=== PATIENT | female | born 1945 | race Caucasian/White ===

== ENCOUNTER 2017-05-14 11:53 | Inpatient (IN) | payer OTHER ==
[~2017-05-14] VITALS: Ht 162.6 cm; Wt 94.5 kg
--- NOTE | ~2017-05-14 | EKG ---
[place], [place] ELECTROCARDIOGRAM REPORT NAME: HEATHER BERRIOS UNIT #: [id number] ROOM: [facility] DOCTOR: JASON NARANJO,MONI BIRTHDATE: [birth year] DOS: 05/14/2017 TIME: 1334 hours IMPRESSION: 1. Sinus rhythm. 2. Sinus bradycardia. 3. Nonspecific intraventricular conduction delay. 4. Normal QT interval. MONI GOMEZ MD CM:EKGRPT:ELECTROCARDIOGRAM REPORT [id number] MONI GOMEZ MD
--- NOTE | ~2017-05-14 | CON ---
[place], [place] REPORT OF CONSULTATION NAME[id number] UNIT #: [id number] ROOM: 509 DOCTOR: STANLEY SANCHEZ MD BIRTHDATE: [birth year] DOS: 05/17/2017 HISTORY OF PRESENT ILLNESS: This is a 70-year-old patient who was presented with chief complaint of multiple issues among which was her dysphagia and epigastric distress. She has metastatic carcinoma, right flank pain, and multisite pain with a history of cirrhosis, ascites, status post chemotherapy for breast CA and renal failure; diuresis, and complex history of metastatic management. PAST MEDICAL HISTORY: Also associated with gastroesophageal reflux, chronic atrial fibrillation, hyperlipidemia, lung metastasis, breast CA, Paget's disease of the left breast, type 2 diabetes mellitus, essential hypertension, and renal insufficiency. PAST SURGICAL HISTORY: Cholecystectomy, hysterectomy, tonsillectomy, and cataracts. SOCIAL HISTORY: Nonsmoker and nonalcohol consumer. FAMILY HISTORY: Noncontributory. ALLERGIES: VICODIN, PENICILLIN, OXYCODONE, AND HYDROCODONE. MEDICATIONS: List has been reviewed. REVIEW OF SYSTEMS: HEENT: Denies double vision or blurred vision. RESPIRATORY: Denies shortness of breath. CARDIOVASCULAR: Denies chest pain. DIGESTIVE SYSTEM: At the present time, no suppression of appetite. She is able to eat and no bowel movement compromise. PHYSICAL EXAMINATION: GENERAL: Reveals a well-nourished patient, obese. HEENT: Head is normocephalic and nontraumatic. Mouth and buccal mucosa benign. NECK: Supple. No thyromegaly. No cervical lymphadenopathy. CHEST: Symmetric anatomy. Equal expansion. No wheeze. No rhonchi. HEART: Normal sinus rhythm. No gallop. No murmur. ABDOMEN: Soft. Obese. No hepato-organomegaly. Bowel sounds present. EXTREMITIES: A 1+ pedal edema was noticed. NEUROLOGIC: Alert and oriented to time, place, and person. Sensory and motor intact. Cranial nerves 2-12 is intact. LABORATORY DATA: Reviewed. Her initial H and H 9 and 28, white blood cell of 9, and platelet count of normal level was noticed. Lactic acid was 2.0. INR of 1.1. Serum ammonia 25. CT scan of the abdomen and pelvis was reviewed, no acute process. A 4 mm solid nodule in the lingula of the lung and the details as reported diminished lung average access. Pancreas, spleen, adrenal gland, and gallop kidneys are suboptimally evaluated. Calcification of coronary artery disease seen. No gross biliary dilation identified. There are a few small [place], [place] REPORT OF CONSULTATION NAME: HEATHER BERRIOS UNIT #: [id number] ROOM: 509 DOCTOR: STANLEY SANCHEZ MD BIRTHDATE: [birth year] calcification in the right lobe of the liver. Labs reviewed and records reviewed. Urine shows no bacterial overgrowth with renal status of BUN and creatinine of 50 and 2.26 was noticed and hyperkalemia of 5.4 is known. Labs reviewed and records reassessed. IMPRESSION: 1. Epigastric distress. 2. Reflux. 3. Breast cancer. 4. Lung metastasis. PLAN AND DISCUSSION: I have discussed with the patient. She does not want any interventional evaluation at the present time. She is content with the management. We are going to assure that she remains on PPI since her appetite is intact. Bowel movements are regular. We are content also she has never had colonoscopy done in her lifetime; however, that I will defer to Oncology and urgency of the need for such a screening at this stage. Renal insufficiency being addressed. Anemia being observed. Pain management in progress. Other adjunctive diagnoses as outlined. STANLEY SANCHEZ MD CM:CONSTR:REPORT OF CONSULTATION 1348 05/18/17 0102 interface
--- NOTE | ~2017-05-14 | PR ---
[place], [place] PROGRESS NOTE NAME: [id number] UNIT #: [id number] ROOM: 509 DOCTOR: CHERYL CRONIN MD BIRTHDATE: [birth year] DOS: 05/16/2017 SUBJECTIVE: The patient seen and examined. She is awake and alert. She is feeling much better. She denies nausea or vomiting. She states her urine output has been very good. She is tolerating a diet. PHYSICAL EXAMINATION: VITAL SIGNS: Temperature 98.4, pulse 69, respiratory rate 20, blood pressure 120/80. HEENT: Shows no JVD. LUNGS: Fairly clear. No crackles or rales. HEART: Normal S1, S2. No rub, thrill or gallop. ABDOMEN: Soft, nontender. There is no organomegaly or rigidity. EXTREMITIES: Had trace to 1+ edema. SKIN: Showed no overt rash. LABORATORY DATA: Blood cultures were negative to date as well as urine culture was negative to date. Hemoglobin 8.8, white count of 5.5, platelets of 196. Sodium 142, potassium 5.4, CO2 of 23, calcium 9.0, phosphorus 4.0, albumin 3.1, BUN 72, creatinine of 4.2. Renal ultrasound was noted and was negative for hydronephrosis. ASSESSMENT AND PLAN: 1. Acute kidney injury. This seems to be related to prerenal factors. Renal function is improving. Continue IV fluids for now. Can likely discontinue them tomorrow as long as she is tolerating oral intake. 2. Anemia. Follow H and H. Transfuse as felt needed. 3. Mild hyperkalemia. Follow labs. 4. History of metastatic breast cancer. Ongoing supportive care. 5. History of baseline chronic kidney disease stage 4 according to the notes. As noted, renal function is improving. She is off her enalapril, Aldactone and NSAIDs. CHERYL CRONIN MD CM:PNTRANS 06 34 CHERYL CRONIN MD 05/16/172033 interface
[~2017-05-14 11:53] MED LIST: BESIVANCE 5 ML5 ML OD; CARE; CLINDAMYCIN HC300 MG PO; DILT-CD120 MG; ELIQUIS5 M1 PO; ENALAPRIL10 MG PO; FENOFIBRIC ACID PO; GLIPIZIDE10 M2 PO; GLYBURIDE5 MG; JANTOVEN4 MG PO; LANTUS100 U/ML SC; LASIX20 MG PO; LOVASTATIN20 MG PO; MEDROL DOSEPAK4 MG PO; METFORMIN1000 MG; OMEPRAZOLE20 MG; OMEPRAZOLE40 MG PO; TRILIPIX; TRILIPIX45 M1 PO; ULTRAM50 MG PO; VISTARIL50 MG PO; WARFARIN4 MG PO; [UNRECOGNIZED DRUG - OTHER]
[2017-05-14 12:02] VITALS: BP 127/102
[2017-05-14 12:49] LABS: BASO % 0.2 % (0.0-1.0); EOS # 0.2 10*3/uL (0.0-0.4); HEMATOCRIT 28.5 % (37.0-47.0); HEMOGLOBIN 9.2 g/dl (12.0-16.0); LYMPH % 10.5 % (27.0-41.0); MEAN CELL VOLUME 96.3 fl (81.0-99.0); MEAN CORPUSCULAR HGB 31.1 pg (27.0-31.0); MEAN CORPUSCULAR HGB CONC 32.3 g/dl (33.0-37.0); MEAN PLATELET VOLUME 9.1 fl (9.6-12.3); MONO # 0.5 10*3/uL (0.1-1.0); MONO % 5.8 % (3.0-9.0); NEUT # 7.3 10*3/uL (2.3-7.9); NEUT % 80.8 % (47.0-73.0); PLATELET COUNT AUTOMATED 206 10*3/uL (130-400); RED BLOOD COUNT 2.96 10*6/uL (4.10-5.10); RED CELL DISTRI WIDTH 12.9 % (0-14.5)
[2017-05-14 13:00] LABS: ACT PARTIAL THROMBO TIME 27.7 SECONDS (20.8-31.5); INTERNATIONAL NORM RATIO 1.1 (2.0-3.5)
[2017-05-14 13:03] LABS: ALBUMIN 3.4 gm/dl (3.1-4.5); CREATININE 8.23 mg/dL (0.55-1.02); POTASSIUM 5.5 mmol/L (3.5-5.1)
[2017-05-14 13:15] VITALS: BP 120/92
[2017-05-14 15:30] VITALS: BP 109/48
[2017-05-14] MEDS ORDERED: ALDACTONE25 M1 PO (17:41)
[2017-05-14] MEDS ORDERED: ENALAPRIL10 MG PO (17:42)
[2017-05-14] MEDS ORDERED: LEXAPRO10 MG PO (17:44)
[2017-05-14] MEDS ORDERED: LASIX40 MG PO (17:44)
[2017-05-14] MEDS ORDERED: Magnesium Oxid400 MG PO (17:45)
[2017-05-14] MEDS ORDERED: ZOFRAN4 MG PO (18:58)
[2017-05-14] MEDS ORDERED: SYMB160 INH (19:00)
[2017-05-14] MEDS ORDERED: NITROSTAT0.4 MG SL (19:00)
[2017-05-14 20:00] VITALS: BP 122/54
[2017-05-14 23:14] LABS: BILIRUBIN NEGATIVE (NEGATIVE); BLOOD TRACE-INTACT (NEGATIVE); CLARITY CLEAR (CLEAR); COLOR YELLOW (YELLOW); GLUCOSE 2+ (NEGATIVE); KETONE NEGATIVE (NEGATIVE); LEUKO ESTERASE NEGATIVE (NEGATIVE); NITRITE NEGATIVE (NEGATIVE); SPECIFIC GRAVITY <= 1.005 (1.005-1.030); UROBILINOGEN 0.2 E.U./dl (0.2-1.0)
[2017-05-14 23:22] LABS: BACTERIA 1+
[2017-05-14 23:24] LABS: URINE CREATININE RANDOM 60.1 mg/dL
[2017-05-15] VITALS: BP 120/62
[2017-05-15 06:47] LABS: BASO % 0.2 % (0.0-1.0); EOS # 0.2 10*3/uL (0.0-0.4); EOS % 2.7 % (1.0-4.0); HEMATOCRIT 25.6 % (37.0-47.0); HEMOGLOBIN 8.5 g/dl (12.0-16.0); LYMPH # 1.2 10*3/uL (1.3-4.4); LYMPH % 18.6 % (27.0-41.0); MEAN CELL VOLUME 95.9 fl (81.0-99.0); MEAN CORPUSCULAR HGB 31.8 pg (27.0-31.0); MEAN CORPUSCULAR HGB CONC 33.2 g/dl (33.0-37.0); MEAN PLATELET VOLUME 10.1 fl (9.6-12.3); MONO # 0.6 10*3/uL (0.1-1.0); MONO % 8.8 % (3.0-9.0); NEUT # 4.3 10*3/uL (2.3-7.9); NEUT % 69.1 % (47.0-73.0); PLATELET COUNT AUTOMATED 196 10*3/uL (130-400); RED BLOOD COUNT 2.67 10*6/uL (4.10-5.10); RED CELL DISTRI WIDTH 12.7 % (0-14.5); WHITE BLOOD COUNT 6.2 10*3/uL (4.8-10.8)
[2017-05-15 07:32] LABS: CREATININE 6.83 mg/dL (0.55-1.02); PHOSPHOROUS 4.3 mg/dL (2.5-4.9); POTASSIUM 5.4 mmol/L (3.5-5.1)
[2017-05-15 07:39] LABS: THYROID STIM HORMONE (HS) 0.825 uIU/ml (0.358-4.75)
[2017-05-15 07:51] LABS: VITAMIN D, 25-HYDROXY 14.2 ng/mL (30-100)
[2017-05-15 08:31] VITALS: BP 102/48
[2017-05-15 12:42] VITALS: BP 121/58
[2017-05-15 16:00] VITALS: BP 133/49
[2017-05-15 20:00] VITALS: BP 117/49
[2017-05-16] VITALS: BP 110/50
[2017-05-16 06:51] LABS: BASO % 0.2 % (0.0-1.0); EOS # 0.2 10*3/uL (0.0-0.4); EOS % 3.3 % (1.0-4.0); HEMOGLOBIN 8.8 g/dl (12.0-16.0); LYMPH # 1.1 10*3/uL (1.3-4.4); LYMPH % 20.4 % (27.0-41.0); MEAN CELL VOLUME 96.4 fl (81.0-99.0); MEAN CORPUSCULAR HGB 31.4 pg (27.0-31.0); MEAN CORPUSCULAR HGB CONC 32.6 g/dl (33.0-37.0); MONO # 0.5 10*3/uL (0.1-1.0); MONO % 8.2 % (3.0-9.0); NEUT # 3.7 10*3/uL (2.3-7.9); NEUT % 67.4 % (47.0-73.0); PLATELET COUNT AUTOMATED 196 10*3/uL (130-400); RED CELL DISTRI WIDTH 12.9 % (0-14.5); WHITE BLOOD COUNT 5.5 10*3/uL (4.8-10.8)
[2017-05-16 07:29] LABS: ALBUMIN 3.1 gm/dl (3.1-4.5); CREATININE 4.23 mg/dL (0.55-1.02); POTASSIUM 5.4 mmol/L (3.5-5.1)
[2017-05-16 08:00] VITALS: BP 120/58
[2017-05-16 12:00] VITALS: BP 120/80
[2017-05-16 16:00] VITALS: BP 121/50
[2017-05-16 20:04] VITALS: BP 124/57
[2017-05-17 00:12] VITALS: BP 123/60
[2017-05-17 06:41] LABS: BASO % 0.3 % (0.0-1.0); EOS # 0.3 10*3/uL (0.0-0.4); EOS % 4.9 % (1.0-4.0); HEMATOCRIT 25.5 % (37.0-47.0); HEMOGLOBIN 8.3 g/dl (12.0-16.0); LYMPH # 1.1 10*3/uL (1.3-4.4); LYMPH % 17.6 % (27.0-41.0); MEAN CELL VOLUME 96.6 fl (81.0-99.0); MEAN CORPUSCULAR HGB 31.4 pg (27.0-31.0); MEAN CORPUSCULAR HGB CONC 32.5 g/dl (33.0-37.0); MEAN PLATELET VOLUME 9.6 fl (9.6-12.3); MONO # 0.5 10*3/uL (0.1-1.0); MONO % 8.1 % (3.0-9.0); NEUT # 4.2 10*3/uL (2.3-7.9); PLATELET COUNT AUTOMATED 199 10*3/uL (130-400); RED BLOOD COUNT 2.64 10*6/uL (4.10-5.10); RED CELL DISTRI WIDTH 13.1 % (0-14.5); WHITE BLOOD COUNT 6.1 10*3/uL (4.8-10.8)
[2017-05-17 07:26] LABS: CREATININE 2.26 mg/dL (0.55-1.02); PHOSPHOROUS 2.9 mg/dL (2.5-4.9); POTASSIUM 5.4 mmol/L (3.5-5.1)
[2017-05-17 08:00] VITALS: BP 130/54
[2017-05-17 12:00] VITALS: BP 131/52
[2017-05-17 16:00] VITALS: BP 123/50
[2017-05-17 20:00] VITALS: BP 100/8
[2017-05-17 20:40] VITALS: BP 158/72
[2017-05-18] VITALS: BP 124/50
[2017-05-18 07:22] LABS: BASO % 0.2 % (0.0-1.0); EOS # 0.3 10*3/uL (0.0-0.4); HEMATOCRIT 27.3 % (37.0-47.0); HEMOGLOBIN 8.7 g/dl (12.0-16.0); LYMPH # 1.2 10*3/uL (1.3-4.4); LYMPH % 19.7 % (27.0-41.0); MEAN CELL VOLUME 96.5 fl (81.0-99.0); MEAN CORPUSCULAR HGB 30.7 pg (27.0-31.0); MEAN CORPUSCULAR HGB CONC 31.9 g/dl (33.0-37.0); MEAN PLATELET VOLUME 9.7 fl (9.6-12.3); MONO # 0.5 10*3/uL (0.1-1.0); MONO % 8.7 % (3.0-9.0); NEUT # 3.9 10*3/uL (2.3-7.9); NEUT % 65.6 % (47.0-73.0); PLATELET COUNT AUTOMATED 210 10*3/uL (130-400); RED BLOOD COUNT 2.83 10*6/uL (4.10-5.10); RED CELL DISTRI WIDTH 12.9 % (0-14.5)
[2017-05-18 07:32] LABS: ALBUMIN 3.2 gm/dl (3.1-4.5); POTASSIUM 4.9 mmol/L (3.5-5.1)
[2017-05-18 07:35] LABS: CREATININE 1.87 mg/dL (0.55-1.02); TOTAL PROTEIN 6.8 gm/dL (6.4-8.2)
[2017-05-18 08:00] VITALS: BP 132/58
[2017-05-18 12:00] VITALS: BP 124/56
[2017-05-18] MEDS ORDERED: VITAMIN D31000 UNI1 PO (13:00)
== END 2017-05-18 14:00 | disposition home or self-care (01) | DRG 683 ==
LOC: ED 11:53 → 5E 14:32 → EDHOLD 14:32 → 5E 14:38
PROVIDERS: Hospitalist; Internal Medicine Nephrology; Nurse Practitioner Family; Student in an Organized Health Care Education/Training Program
DX: N17.0 Acute kidney failure with tubular necrosis (principal); E87.2 Acidosis; E11.65 Type 2 diabetes mellitus with hyperglycemia; D68.59 Other primary thrombophilia; C78.00 Secondary malignant neoplasm of unspecified lung; E11.22 Type 2 diabetes mellitus with diabetic chronic kidney disease; E87.1 Hypo-osmolality and hyponatremia; E87.5 Hyperkalemia; N18.4 Chronic kidney disease, stage 4 (severe); I48.0 Paroxysmal atrial fibrillation; C50.912 Malignant neoplasm of unspecified site of left female breast; D64.9 Anemia, unspecified; D72.810 Lymphocytopenia; D72.9 Disorder of white blood cells, unspecified; I12.9 Hypertensive chronic kidney disease with stage 1 through stage 4 chronic kidney disease, or unspecified chronic kidney disease; K21.9 Gastro-esophageal reflux disease without esophagitis; R19.5 Other fecal abnormalities; E66.09 Other obesity due to excess calories; E53.8 Deficiency of other specified B group vitamins; E55.9 Vitamin D deficiency, unspecified; K74.60 Unspecified cirrhosis of liver; E78.00 Pure hypercholesterolemia, unspecified; M19.90 Unspecified osteoarthritis, unspecified site; E78.5 Hyperlipidemia, unspecified; Z98.42 Cataract extraction status, left eye; Z98.41 Cataract extraction status, right eye; Z90.49 Acquired absence of other specified parts of digestive tract; Z90.710 Acquired absence of both cervix and uterus; Z92.21 Personal history of antineoplastic chemotherapy; Z84.1 Family history of disorders of kidney and ureter; Z83.3 Family history of diabetes mellitus; Z82.49 Family history of ischemic heart disease and other diseases of the circulatory system; Z81.1 Family history of alcohol abuse and dependence; Z84.89 Family history of other specified conditions; Z80.0 Family history of malignant neoplasm of digestive organs; Z88.0 Allergy status to penicillin; Z88.8 Allergy status to other drugs, medicaments and biological substances; Z79.4 Long term (current) use of insulin; Z79.899 Other long term (current) drug therapy; Z68.32 Body mass index [BMI] 32.0-32.9, adult; Z87.440 Personal history of urinary (tract) infections

== ENCOUNTER 2018-12-12 21:21 | Inpatient (IN) | payer OTHER ==
[~2018-12-12] VITALS: Ht 167.6 cm; Wt 77.1 kg
[~2018-12-12 21:21] MED LIST changes: +ALDACTONE25 M1 PO; +CAPECITABINE500 MG PO; +CARTIA XT120 MG PO; +ESCITALOPRAM OX10 MG PO; +EXEMESTANE25 M2 PO; +FUROSEMIDE40 MG PO; +INSULIN LI100 UNIT/1 SQ; +LASIX40 MG PO; +LEXAPRO10 MG PO; +MAPAP ARTHRITI650 MG PO; +Magnesium Oxid400 MG PO; +NEURONTIN300 MG PO; +NITROSTAT0.4 MG SL; +SYMB160 INH; +TYKERB250 MG PO; +VITAMIN D31000 UNI1 PO; +ZOFRAN4 MG PO
--- NOTE | 2018-12-12 21:42 | NUR ---
PATIENTS HOSPICE NURSE HERE AT THIS TIME HEATHER WADSWORTH.
--- NOTE | 2018-12-12 22:17 | NUR ---
PATIENT IN BED WITH FAMILY AT BEDSIDE AT THIS TIME AND THE INSIDE SALES TRAINER
--- NOTE | 2018-12-12 22:48 | NUR ---
Time: 2252 A 73 year old FEMALE admitted to 5E under services of RENETTA WHITNEY DO. Pt. arrived via stretcher from ER. Chief complaint: AGONAL BREATHING. CHIVO GODWIN
[2018-12-12 23:00] VITALS: BP 102/57
--- NOTE | 2018-12-12 23:04 | NUR ---
DR GONZALEZ CALLED ABOUT FLU SHOT. STATES PATIENT DOES NOT NEED IT
--- NOTE | 2018-12-13 | NUR ---
ATROPINE DROPS GIVEN UNDER TONGUE, MORPHINE AND ATIVAN GIVEN PER ORDER FOR SIGNS OF PAIN AND DISTRESS. DAUGHTER AND SON AT BEDSIDE.
--- NOTE | 2018-12-13 03:09 | NUR ---
MORPHINE AND ATROPINE GIVEN PER ORDER FOR MOIST RESPIRATIONS AND SIGNS OF PAIN. SON STATES TO NOT DO 4AM VITALS. WILL CONTINUE TO MONITOR
--- NOTE | 2018-12-13 05:26 | NUR ---
PATIENT'S EYES CLOSED. RESPIRATIONS DEEP AND AGONAL WITH AUDIBLE RHONCHI. PATIENT SON AT BEDSIDE. WILL MONITOR
--- NOTE | 2018-12-13 08:57 | NUR ---
PT HAS PASSED. CONFIMRED WITH ARMIDA ROBLEDO RN AT 0856. SON AT THE BEDSIDE. DR HAYES AND NURSING FLEET DISPATCH MANAGER, NIMCO NOTIFIED.
--- NOTE | 2018-12-13 09:01 | NUR ---
[place] NOTIFIED - PATIENT RULED OUT DUE TO CANCER WITH METS. DOCUMENTED IN INTERVENTION SCREEN.
--- NOTE | 2018-12-13 11:09 | NUR ---
PT TRANSPORTED VIA [facility] TO [facility] AT THIS TIME. PT RELEASED BY INKING MACHINE TENDER.
== END 2018-12-13 08:57 | disposition expired | DRG 598 ==
LOC: ED 21:21 → EDHOLD 22:16 → 5E 22:16
PROVIDERS: ADMIT Internal Medicine
DX: C50.919 Malignant neoplasm of unspecified site of unspecified female breast (principal); C78.00 Secondary malignant neoplasm of unspecified lung; N18.4 Chronic kidney disease, stage 4 (severe); I13.0 Hypertensive heart and chronic kidney disease with heart failure and stage 1 through stage 4 chronic kidney disease, or unspecified chronic kidney disease; I50.84 End stage heart failure; E11.649 Type 2 diabetes mellitus with hypoglycemia without coma; E11.22 Type 2 diabetes mellitus with diabetic chronic kidney disease; K21.9 Gastro-esophageal reflux disease without esophagitis; E78.00 Pure hypercholesterolemia, unspecified; E66.9 Obesity, unspecified; M19.90 Unspecified osteoarthritis, unspecified site; I48.0 Paroxysmal atrial fibrillation; Z51.5 Encounter for palliative care; E11.65 Type 2 diabetes mellitus with hyperglycemia; Z66 Do not resuscitate; Z90.49 Acquired absence of other specified parts of digestive tract; Z90.710 Acquired absence of both cervix and uterus; Z98.42 Cataract extraction status, left eye; Z98.41 Cataract extraction status, right eye; Z81.1 Family history of alcohol abuse and dependence; Z79.4 Long term (current) use of insulin; Z99.81 Dependence on supplemental oxygen; Z84.89 Family history of other specified conditions; Z80.0 Family history of malignant neoplasm of digestive organs; Z84.1 Family history of disorders of kidney and ureter; Z82.49 Family history of ischemic heart disease and other diseases of the circulatory system; Z88.0 Allergy status to penicillin; Z88.8 Allergy status to other drugs, medicaments and biological substances; Z79.899 Other long term (current) drug therapy